=== PATIENT | female | born 1985 | race Caucasian/White ===

== ENCOUNTER 2016-08-26 04:04 | Emergency (ER) | payer OTHER ==
[2016-08-26] MEDS ORDERED: SULFAMETHOXAZOLE/TRIMETHOPRIM 800MG/160MG D.S. TABLET PO ONE (04:45)
[2016-08-26 04:46] VITALS: BP 111/88; PULSE 79; TEMP 98.4; BMI 25.7
--- NOTE | 2016-08-26 04:46 | PDOC ---
History of Present Illness - General History Source: Patient Exam Limitations: No Limitations <Gal Borges - Last Filed: 08/26/16 04:48> - General History Source: Patient Exam Limitations: No Limitations - History of Present Illness Initial Comments: 08/26/16 04:49 The patient is a 31 year old female with a significant past medical history of anxiety/depression who presents to the ED with complaints of progressively worsening bilateral breast induration. Patient reports she recently gave in December 2015 and since then noted lumps that she describes as boils surrounding her bilateral areola. Patient reports pain to her bilateral breast at the site of the induration. She states the induration intermittently burst and drain and yellow colored discharge. She states the pain progressively worsened today. Patient visited [facility] ED on 08/08/16 and was discharged with Augmentin but is not taking the medication consistently and reports no relief to symptoms. Denies fevers or chills. Denies a family history of breast CA. Denies nausea, vomiting, or diarrhea. Denies any other symptoms. Social hx: Multiple drug use. <Star Ozuna - Last Filed: 08/26/16 04:49> - General Stated Complaint: PAIN Time Seen by Provider: 08/26/16 04:30 Past History - Past Medical History Anemia: No Asthma: No Cancer: No Cardiac Disorders: No CVA: No COPD: No CHF: No Dementia: No Diabetes: No GI Disorders: No Disorders: No HTN: No Hypercholesterolemia: No Kidney Stones: No Liver Disease: No Psychiatric Problems: Yes (BIPOLAR. OCD. anxiety) Suicide Attempt (Hx): Yes (at age 14) Seizures: No Thyroid Disease: No - Surgical History Abdominal Surgery: No Appendectomy: No Cardiac Surgery: No Cholecystectomy: No Lung Surgery: No Neurologic Surgery: No Orthopedic Surgery: No - Reproductive History PID: No - Psycho/Social/Smoking Cessation Hx Anxiety: Yes Suicidal Ideation: Yes (at age 14) Smoking History: Current every day smoker Have you smoked in the past 12 months: Yes Number of Cigarettes Smoked Daily: 10 'Breaking Loose' booklet given: 01/17/16 Hx Alcohol Use: No Drug/Substance Use Hx: Yes (reports using PCP since 14 yo ,cocaine/crack since 19 yo on and off) Substance Use Type: Cocaine Hx Substance Use Treatment: Yes (completed 28 days inpatient 3 yo) <Gal Borges - Last Filed: 08/26/16 04:48> <Star Ozuna - Last Filed: 08/26/16 04:49> - Past Medical History Allergies/Adverse Reactions: Allergies Allergy/AdvReac Type Severity Reaction Status Date / Time No Known Allergies Allergy Verified 08/26/16 04:44 Home Medications: Ambulatory Orders Ferrous Sulfate [Feosol] 325 mg PO DAILY 01/17/16 Sertraline HCl [Zoloft -] 50 mg PO DAILY #30 tablet 02/08/16 Sulfamethoxazole/Trimethoprim [Bactrim Ds -] 1 tab PO BID #14 tablet 08/26/16 Review of Systems - Review of Systems Able to Perform ROS?: Yes Comments:: 08/26/16 04:49 GENERAL/CONSTITUTIONAL: No fever or chills. No weakness. HEAD, EYES, EARS, NOSE AND THROAT: No change in vision. No ear pain or discharge. No sore throat. CARDIOVASCULAR: No chest pain or shortness of breath. RESPIRATORY: No cough, wheezing, or hemoptysis. GASTROINTESTINAL: No nausea, vomiting, diarrhea or constipation. GENITOURINARY: No dysuria, frequency, or change in urination. MUSCULOSKELETAL: No joint or muscle swelling or pain. No neck or back pain. SKIN: + breast induration with pain and discharge. No rash NEUROLOGIC: No headache, vertigo, loss of consciousness, or change in strength/ sensation. ENDOCRINE: No increased thirst. No abnormal weight change. HEMATOLOGIC/LYMPHATIC: No anemia, easy bleeding, or history of blood clots. ALLERGIC/IMMUNOLOGIC: No hives or skin allergy. All Other Systems: Reviewed and Negative <Star Ozuna - Last Filed: 08/26/16 04:49> *Physical Exam - Vital Signs Last Vital Signs Temp Pulse Resp BP Pulse Ox 98.4 F 79 20 111/88 98 08/26/16 04:44 08/26/16 04:44 08/26/16 04:44 08/26/16 04:44 08/26/16 04:44 - Physical Exam Comments: 08/26/16 04:49 GENERAL: Awake, alert, and fully oriented, in no acute distress HEAD: No signs of trauma EYES: PERRLA, EOMI, sclera anicteric, conjunctiva clear ENT: Auricles normal inspection, hearing grossly normal, nares patent, oropharynx clear without exudates. Moist mucosa NECK: Normal ROM, supple, no lymphadenopathy, JVD, or masses LUNGS: Breath sounds equal, clear to auscultation bilaterally. No wheezes, and no crackles HEART: Regular rate and rhythm, normal S1 and S2, no murmurs, rubs or gallops ABDOMEN: Soft, nontender, normoactive bowel sounds. No guarding, no rebound. No masses EXTREMITIES: Normal range of motion, no edema. No clubbing or cyanosis. No cords, erythema, or tenderness NEUROLOGICAL: Normal speech SKIN: + induration no fluctuance and mild erythema just superior to right and left nipple, approximately 2x2 cm, no nipple drainage, no nodules appreciated. <Star Ozuna - Last Filed: 08/26/16 04:49> Medical Decision Making - Medical Decision Making 08/26/16 04:41 A portion of this note was documented by scribe services under my direction. I have reviewed the details of the note, within reason, and agree with the documentation with the following case summary and management plan written by me. Patient treated in the ED. Nursing notes are reviewed and incorporated into the medical decision-making. Vital signs reviewed. Peripheral IV access obtained by the nurse, laboratory studies are drawn and sent, reviewed and interpreted by myself. 31-year-old female with history of prior polysubstance abuse, depression presents with several months of induration of bilateral breast. This approximate 2 x 2 centimeter induration and mild erythema just superior to both her nipples. She reports no nipple discharge but does report occasionally that this induration does express some mild yellowish drainage. This has been a recurrent issue since she had even delivery in December 2015. She denies breast- feeding. Denies fevers. States that she was seen on August 08 by another physician and was given a prescription of Augmentin. However, patient has been intermittently taking the Augmentin and not taken it consistently. The symptoms have not improved. Came into the ED for further evaluation. Patient has no family history of breast cancer. However, I suspect this is more likely mild cellulitis and chronic induration. No clinical evidence of abscess at this time. We'll switch patient to Bactrim twice a day. I encouraged patient to be adherent to her antibiotic. Patient states that she'll follow-up with her [employer] physician. I discussed the physical exam findings, ancillary test results and final diagnoses with the patient. I answered all of the patient's questions. The patient was satisfied with the care received and felt comfortable with the discharge plan and treatment plan. The patient will call their primary care physician within 24 hours to arrange follow-up and will return to the Emergency Department with any new, persistant or worsening symptoms. <Gal Borges - Last Filed: 08/26/16 04:48> *DC/Admit/Observation/Transfer - Discharge Dispostion Admit: No <Gal Borges - Last Filed: 08/26/16 04:48> - Attestations Scribe Attestion: 08/26/16 04:49 Documentation prepared by Star Ozuna, acting as family practice medical doctor for Gal Borges MD <Star Ozuna - Last Filed: 08/26/16 04:49> Diagnosis at time of Disposition: Cellulitis of breast - Discharge Dispostion Disposition: HOME Condition at time of disposition: Stable - Prescriptions Prescriptions: Sulfamethoxazole/Trimethoprim [Bactrim Ds -] 1 tab PO BID #14 tablet - Patient Instructions Printed Discharge Instructions: DI for Cellulitis -- Adult Additional Instructions: Take bactrim every 12 hours for the next 7 days Follow up with your occupational therapist home based doctor.
[2016-08-26] MEDS ORDERED: SULFAMETHOXAZOLE/TRIMETHOPRIM 800MG/160MG D.S. TABLET ONE (04:47)
[2016-08-26] MEDS ORDERED: IBUPROFEN 600 MG TABLET (FP) PO ONE ×2 (04:47→04:48)
== END 2016-08-26 04:52 | disposition home or self-care (01) ==
LOC: JER 04:04
DX: N61.0 Mastitis without abscess (principal); F41.8 Other specified anxiety disorders; F31.9 Bipolar disorder, unspecified
CPT/HCPCS: 99281-25

== ENCOUNTER 2016-11-24 10:24 | Day surgery (SDC) | payer OTHER ==
[2016-11-23 10:20] VITALS: BMI 24.7
[2016-11-24] MEDS ORDERED: LIDOCAINE HCL 1%, 10 MG/ML (20ML VIAL) ONE (12:21)
[2016-11-24] MEDS ORDERED: MIDAZOLAM HCL 2 MG/2 ML SINGLE DOSE VIAL ONE ×2 (13:06)
[2016-11-24] MEDS ORDERED: SUCCINYLCHOLINE CHLORIDE 200 MG/10 ML VIAL ONE (13:07)
[2016-11-24] MEDS ORDERED: PROPOFOL 20 ML ONE (13:07)
[2016-11-24] MEDS ORDERED: LIDOCAINE HCL/PF 2% SDV 5ML VIAL ONE ×2 (13:07→13:43)
[2016-11-24] MEDS ORDERED: ceFAZolin SODIUM 1 GM VIAL IVPB ONE (13:22)
[2016-11-24] MEDS ORDERED: ceFAZolin SODIUM 1 GM VIAL ONE (13:25)
[2016-11-24] MEDS ORDERED: LIDOCAINE HCL 1%, 10 MG/ML (20ML VIAL) PNB ONE (13:30)
[2016-11-24] MEDS ORDERED: DEXAMETHASONE SOD PHOSPHATE 4 MG/1 ML VIAL ONE (13:43)
[2016-11-24] MEDS ORDERED: KETOROLAC TROMETHAMINE 30 MG/1 ML VIAL ONE (13:43)
[2016-11-24] MEDS ORDERED: BACITRACIN 15 GM TUBE TOPICAL OINTMENT ONE (14:03)
[2016-11-24] MEDS ORDERED: ACETAMINOPHEN 325 MG TABLET (FP) PO PRN (14:35)
[2016-11-24] MEDS ORDERED: ONDANSETRON 4 MG/2 ML VIAL IVPUSH PRN (14:35)
[2016-11-24] MEDS ORDERED: LACTATED RINGERS SOLUTION 1,000 ML IV SCH (14:45)
--- NOTE | 2016-11-24 16:02 | OP ---
DATE OF OPERATION: 11/24/2016 PREOPERATIVE DIAGNOSES: Bilateral lactiferous fistulas, palpable masses. POSTOPERATIVE DIAGNOSES: Bilateral lactiferous fistulas, palpable masses. PROCEDURE: Bilateral excision of masses. SURGEON: Carina Maki MD ANESTHESIA: General. ESTIMATED BLOOD LOSS: Minimal. COMPLICATIONS: None. This was a sterile procedure. INDICATIONS FOR PROCEDURE: Patient presented with palpable masses in the right 1 o'clock to 2 o'clock areolar border as well as the left 11 o'clock areolar border for which my recommendation was that these should be excised as these are likely lactiferous fistulas to the skin. The procedure was discussed with all the questions answered. PROCEDURE IN DETAIL: Patient brought to [facility]. Taken into the operating room. After induction of general anesthesia and IV antibiotics, both breasts were prepped and draped in usual sterile fashion. Lidocaine 1% without epinephrine was used to give local anesthesia to both the areas of surgery. First, the left breast excision was performed. A radial incision was made in the left breast 11 o'clock location to include the fistulous opening up to the nipple. This was excised en bloc and sent as a left breast excision of mass. A lacrimal duct probe was used to make sure that the opening extended to the nipple from the inside. This was sent to Pathology for permanent section. Next, the right breast fistula was excised and an ellipse of skin was taken to include the fistulous opening, extended to the nipple from the inside. In doing so, the entire mass was excised and sent to Pathology for permanent section as a right breast excision of mass. Both incisions were then closed in a routine fashion with interrupted 3-0 Vicryl and running 4-0 Biosyn. The nipple on the right side had an opening at the end of the surgery. Therefore, this was put back together with a 4-0 nylon stitch. A sterile dressing of Steri-Strips, Tegaderm, and 4 x 4 was applied. She tolerated procedure well. Was taken to recovery in good condition. CARINA MAKI M.D. KARAN/[id number]
[2016-11-24 18:15] VITALS: TEMP 97.8
[2016-11-24 18:18] VITALS: BP 112/70; PULSE 68
--- NOTE | 2016-11-30 12:00 | PATH ---
Surgical Pathology Report Patient Name: JOE SALAZAR [facility]. Rec. #: [id number] /Age/Gender: 1985 (Age: 31) / F Account: [id number] Location: [facility] SUR[facility] Taken: 11/24/2016 Received: 11/27/2016 Reported: 11/30/2016 Physicians: Carina Trimble M.D. Specimen(s) Received A: LEFT BREAST EXCISION OF MASS B: RIGHT BREAST EXCISION OF MASS Clinical History Palpable mass right and left Final Diagnosis A. BREAST, LEFT, MASS, EXCISION: BENIGN BREAST TISSUE SHOWING FIBROADENOMATOID CHANGE. SKIN SHOWING ACUTE AND CHRONIC INFLAMMATION WITH SCAR FORMATION. B. BREAST, RIGHT, MASS, EXCISION: BENIGN BREAST TISSUE SHOWING PROLIFERATIVE FIBROCYSTIC CHANGES INCLUDING CYSTIC APOCRINE METAPLASIA, USUAL DUCTAL HYPERPLASIA (UDH) AND CHRONIC PERIDUCTAL INFLAMMATION. SKIN SHOWING ACUTE AND CHRONIC INFLAMMATION AND GRANULATION TISSUE FORMATION. Electronically Signed Janice Lay M.D. Gross Description A. Received in formalin labeled "left breast excision of mass," is a 3.0 x 2.2 x 2.2 cm irregular, unoriented portion of fibroadipose tissue. There is no needle localization wire present. The anterior surface displays a 2.4 x 1.1 cm saucedo, elliptical portion of skin. The specimen is inked blue and serially sectioned. Sectioning reveals focal dense, white fibrous tissue. The specimen is entirely and sequentially submitted in 7 cassettes. B. Received in formalin labeled "right breast excision of mass," is a 3.2 x 2.3 x 2.0 cm irregular, unoriented portion of fibroadipose tissue. There is no needle localization wire present. The anterior surface displays a 2.0 x 0.6 cm saucedo, elliptical portion of skin. The specimen is inked blue and serially sectioned. Sectioning reveals focal dense, white fibrous tissue. The specimen is entirely and sequentially submitted in 8 cassettes. Total formalin fixation time: Approximately 72 hours 11/27/201611/27/2016
== END 2016-11-24 19:15 | disposition home or self-care (01) ==
LOC: JASU-SURG 10:24
PROVIDERS: ATTEND Surgery
PROC: 0HBV0ZX Excision of Bilateral Breast, Open Approach, Diagnostic (ICD-10-PCS; principal; 2016-11-24 12:00)
DX: N60.22 Fibroadenosis of left breast (principal); N60.11 Diffuse cystic mastopathy of right breast; N60.91 Unspecified benign mammary dysplasia of right breast
CPT/HCPCS: 84703; 88307-TC; 94760

== ENCOUNTER 2017-01-19 15:25 | Inpatient (IN) | payer OTHER ==
[2017-01-19 17:07] VITALS: BMI 27.6
[2017-01-19] MEDS ORDERED: ACETAMINOPHEN 325 MG TABLET (FP) PO PRN (18:44)
[2017-01-19] MEDS ORDERED: guaiFENesin/D-METHORPHAN HB 10 ML UNIT-DOSE CUPS PO PRN (18:44)
[2017-01-19] MEDS ORDERED: P-EPHED 60MG/TRIPROLIDI 2.5MG TABLET PO PRN (18:44)
[2017-01-19] MEDS ORDERED: LOPERAMIDE HCL 2 MG CAPSULE PO PRN (18:44)
[2017-01-19] MEDS ORDERED: MAGNESIUM CITRATE 300 ML BOTTLE PO PRN (18:44)
[2017-01-19] MEDS ORDERED: MAGNESIUM HYDROX 2400MG/30ML ORAL SUSPENSION 30 ML CUP PO PRN (18:44)
[2017-01-19] MEDS ORDERED: MENTHOL/PHENOL 1 EACH UD MM PRN (18:44)
[2017-01-19] MEDS ORDERED: MAG HYDROX/AL HYDROX/SIMETH 30 ML UNIT-DOSE CUP PO PRN (18:44)
[2017-01-19] MEDS ORDERED: IBUPROFEN 400 MG TABLET (FP) PO PRN (18:44)
--- NOTE | 2017-01-19 18:50 | HP ---
Admission [facility] Chief Complaint: requesting inpatient rehab for cocaine Allergies/Adverse Reactions: Allergies Allergy/AdvReac Type Severity Reaction Status Date / Time No Known Allergies Allergy Verified 01/19/17 17:18 History of Present Illness: 31 yo f with h/o cociane dependence and OCD/bipolar do court mandated for inpatient rehab. nicotine dependence, s/p breatst lumpectomy bilateral benign? Exam Limitations: No Limitations - Ebola screening Have you traveled outside of the country in the last 21 days: No (N) Have you had contact with anyone from an Ebola affected area: No Have you been sick,other than usual withdrawal symptoms: No Do you have a fever: No - Review of Systems Constitutional: No Symptoms Reported EENT: reports: No Symptoms Reported Respiratory: reports: No Symptoms reported Cardiac: reports: No Symptoms Reported GI: reports: No Symptoms Reported : reports: No Symptoms Reported Musculoskeletal: reports: No Symptoms Reported Integumentary: reports: No Symptoms Reported Neuro: reports: No Symptoms reported Endocrine: reports: No Symptoms Reported Hematology: reports: No Symptoms Reported Psychiatric: reports: Judgement Intact, Mood/Affect Appropiate, Orientated x3, Anxious, Depressed Other Systems: Reviewed and Negative Patient History - Patient Medical History Hx Anemia: No Hx Asthma: No Hx Chronic Obstructive Pulmonary Disease (COPD): No Hx Cancer: No Hx Cardiac Disorders: No Hx Congestive Heart Failure: No Hx Hypertension: No Hx Hypercholesterolemia: No Hx Pacemaker: No HX Cerebrovascular Accident: No Hx Seizures: No Hx Dementia: No Hx Diabetes: No Hx Gastrointestinal Disorders: No Hx Liver Disease: No Hx Genitourinary Disorders: No Hx Sexually Transmitted Disorders: No Hx Renal Disease (ESRD): No Hx Thyroid Disease: No Hx Human Immunodeficiency Virus (HIV): No (LAST 12/28 NEGATIVE) Hx Hepatitis C: No Hx Depression: Yes Hx Suicide Attempt: Yes (at age 14, no si at this time) Hx Bipolar Disorder: No Hx Schizophrenia: No - Patient Surgical History Past Surgical History: Yes Hx Neurologic Surgery: No Hx Cataract Extraction: No Hx Cardiac Surgery: No Hx Lung Surgery: No Hx Breast Surgery: No Hx Breast Biopsy: Yes (bilateral bx recently) Hx Abdominal Surgery: No Hx Appendectomy: No Hx Cholecystectomy: No Hx Genitourinary Surgery: No Hx Section: Yes (12/20/15) Hx Orthopedic Surgery: No Anesthesia Reaction: No - PPD History Date: 01/19/16 PPD to be Administered?: Yes - Reproductive History Patient is a Female of Child Bearing Age (11 -55 yrs old): Yes Last Menstrual Period: 11/18/16 Patient : No - Smoking Cessation Smoking history: Current every day smoker Have you smoked in the past 12 months: Yes Aproximately how many cigarettes per day: 10 Hx Chewing Tobacco Use: No Initiated information on smoking cessation: Yes 'Breaking Loose' booklet given: 01/19/17 - Substance & Tx. History Hx Alcohol Use: No Hx Substance Use: Yes Substance Use Type: Cocaine Hx Substance Use Treatment: Yes (rehab in past) - Substances Abused Cocaine Route: Inhalation Frequency: Daily Amount used: $40 Age of first use: 17 Date of Last Use: 01/12/17 Family Disease History - Family Disease History Family Disease History: Diabetes: Grandparent, Other: Father (,ALCOHOL) Admission Physical Exam BHS - Vital Signs Vital Signs: Vital Signs - 24 hr 01/19/17 17:06 Temperature 98.6 F Pulse Rate 76 Respiratory 18 Rate Blood Pressure 143/76 - Physical General Appearance: Yes: Within Normal Limits, No Apparent Distress, Nourished, Appropriately Dressed HEENTM: Yes: Within Normal Limits, EOMI, Hearing grossly Normal, Normal ENT Inspection, Normocephalic, Normal Voice, DESMOND, Pharynx Normal, Tm's normal Respiratory: Yes: Within Normal Limits, Chest Non-Tender, Lungs Clear, Normal Breath Sounds, No Respiratory Distress, No Accessory Muscle Use Neck: Yes: Within Normal Limits, No masses,lesions,Nodules, Supple, Trachea in good position Breast: Yes: Breast Exam Deferred Cardiology: Yes: Within Normal Limits, Regular Rhythm, Regular Rate, S1, S2 Abdominal: Yes: Within Normal Limits, Normal Bowel Sounds, Non Tender, Flat, Soft Genitourinary: Yes: Within Normal Limits Back: Yes: Within Normal Limits, Normal Inspection Musculoskeletal: Yes: Within Normal Limits, full range of Motion, Gait Steady, Pelvis Stable Extremities: Yes: Within Normal Limits, Normal Capillary Refill, Normal Inspection, Normal Range of Motion, Non-Tender Neurological: Yes: 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 NML intact, Fully Oriented, Alert, Motor Strength 5/5, Normal Response, Depressed Affect Integumentary: Yes: Within Normal Limits, Normal Color, Dry, Warm Lymphatic: Yes: Within Normal Limits - Diagnostic (1) History of OCD (obsessive compulsive disorder) Current Visit: No Status: Acute (2) Major depressive disorder Current Visit: No Status: Acute (3) Phencyclidine (PCP) use disorder, moderate, dependence Current Visit: No Status: Acute (4) Cannabis abuse Current Visit: No Status: Chronic (5) Cocaine dependence Current Visit: No Status: Chronic (6) Learning disability Current Visit: No Status: Chronic (7) Substance induced mood disorder Current Visit: No Status: Chronic Cleared for Admission S - Detox or Rehab Claeared for Rehab Admission: Yes [facility] Breath Alcohol Content Breath Alcohol Content: 0 Urine Pregancy Test - Result Urine Test Results: Negative- NO Line Present Urine Drug Screen - Results Drug Screen Negative: Yes Inpatient Rehab Admission - Initial Determination Are CD services needed?: Yes Free of communicable disease: Yes Not in need of hospitalization: Yes - Rehab Admission Criteria Previous failed treatment: Yes Comorbidities: Yes Patient is meeting Inpatient Rehab admission criteria:: Yes
[2017-01-19] MEDS ORDERED: TUBERCULIN PPD 5 TU/0.1ML VIAL ID ONE (20:37)
[2017-01-19] MEDS: THIAMINE HCL 100 MG TABLET (FP) PO SCH (21:30)
[2017-01-19] MEDS: hydrOXYzine PAMOATE 50 MG CAPSULE (FP) PO PRN (21:30)
[2017-01-19] MEDS: NICOTINE 14 MG/24 HOURS TOPICAL PATCH TD SCH (21:31)
[2017-01-19 23:13] LABS: URINE APPEARANCE SLCLOUDY; URINE BILIRUBIN NEGATIVE (NEGATIVE); URINE BLOOD 1+ (NEGATIVE); URINE COLOR STRAW; URINE GLUCOSE (UA) 3+ (NEGATIVE); URINE KETONE NEGATIVE (NEGATIVE); URINE LEUK ESTERASE NEGATIVE (NEGATIVE); URINE NITRITE NEGATIVE (NEGATIVE); URINE PROTEIN NEGATIVE (NEGATIVE); URINE UROBILINOGEN NEGATIVE mg/dL (0.2-1.0)
[2017-01-20 00:02] LABS: URINE BACTERIA MODERATE /hpf (NONE SEEN); URINE MUCUS RARE; URINE RBC 1 /hpf (0-3); URINE WBC <1 /hpf (3-5)
[2017-01-20 09:43] LABS: MCH 31.7 pg (25.7-33.7); MCHC 34.3 g/dl (32.0-36.0); MEAN CELL VOLUME 92.3 fl (80-96); PLATELET COUNT 288 K/MM3 (134-434)
[2017-01-20 10:18] LABS: ALBUMIN 3.5 g/dl (3.4-5.0); ALK PHOS 105 U/L (45-117); ANION GAP 8 (8-16); BILIRUBIN,TOTAL 0.6 mg/dL (0.2-1.0); CALCIUM 8.7 mg/dL (8.5-10.1); CO2 26 mmol/L (21-32); CREATININE 0.7 mg/dL (0.55-1.02); GLUCOSE,RANDOM 90 mg/dL (74-106); SGOT/AST 11 U/L (15-37); SGPT/ALT 33 U/L (12-78); TOT PROT 7.1 g/dl (6.4-8.2)
[2017-01-20] MEDS: NICOTINE 14 MG/24 HOURS TOPICAL PATCH TD SCH (10:24)
[2017-01-20] MEDS: PRENATAL VITAMINS W/ FOLIC ACID TABLET (FP) PO SCH (10:24)
[2017-01-20 12:30] LABS: URINE LEUK ESTERASE Negative (NEGATIVE)
[2017-01-20] MEDS: THIAMINE HCL 100 MG TABLET (FP) PO SCH (22:14)
--- NOTE | 2017-01-21 08:52 | EKG ---
Test Reason : Blood Pressure : / mmHG Vent. Rate : 056 BPM Atrial Rate : 056 BPM P-R Int : 134 ms QRS Dur : 088 ms QT Int : 448 ms P-R-T Axes : 025 062 057 degrees QTc Int : 432 ms SINUS BRADYCARDIA OTHERWISE NORMAL ECG WHEN COMPARED WITH ECG OF 20-DEC-2015 15:48, T WAVE INVERSION NO LONGER EVIDENT IN INFERIOR LEADS NONSPECIFIC T WAVE ABNORMALITY NO LONGER EVIDENT IN ANTERIOR LEADS Confirmed by ANA KIMBLE, PEPITO ([id number]) on 01/21/2017 8:52:14 AM Referred By: Confirmed By:PEPITO PEREZ MD
[2017-01-21] MEDS: PRENATAL VITAMINS W/ FOLIC ACID TABLET (FP) PO SCH (10:02)
[2017-01-21] MEDS: NICOTINE 14 MG/24 HOURS TOPICAL PATCH TD SCH (10:02)
[2017-01-21] MEDS: THIAMINE HCL 100 MG TABLET (FP) PO SCH (21:24)
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
[2017-01-22] MEDS: PRENATAL VITAMINS W/ FOLIC ACID TABLET (FP) PO SCH (10:32)
[2017-01-22] MEDS: SERTRALINE HCL 50 MG TABLET (FP) PO SCH (10:32)
[2017-01-22] MEDS: NICOTINE 14 MG/24 HOURS TOPICAL PATCH TD SCH (10:32)
[2017-01-22] MEDS: hydrOXYzine PAMOATE 50 MG CAPSULE (FP) PO PRN (21:18)
[2017-01-22] MEDS: QUEtiapine FUMARATE 100 MG TABLET (FP) PO SCH (21:18)
[2017-01-22] MEDS: THIAMINE HCL 100 MG TABLET (FP) PO SCH (21:18)
[2017-01-22] MEDS ORDERED: QUEtiapine FUMARATE 100 MG TABLET (FP) PO SCH (22:00)
[2017-01-23] MEDS: SERTRALINE HCL 50 MG TABLET (FP) PO SCH (09:58)
[2017-01-23] MEDS: NICOTINE 14 MG/24 HOURS TOPICAL PATCH TD SCH (09:58)
[2017-01-23] MEDS: PRENATAL VITAMINS W/ FOLIC ACID TABLET (FP) PO SCH (09:58)
[2017-01-23] MEDS: QUEtiapine FUMARATE 100 MG TABLET (FP) PO SCH (21:39)
[2017-01-23] MEDS: THIAMINE HCL 100 MG TABLET (FP) PO SCH (21:39)
[2017-01-24] MEDS: NICOTINE 14 MG/24 HOURS TOPICAL PATCH TD SCH (10:05)
[2017-01-24] MEDS: PRENATAL VITAMINS W/ FOLIC ACID TABLET (FP) PO SCH (10:05)
[2017-01-24] MEDS: SERTRALINE HCL 50 MG TABLET (FP) PO SCH (10:05)
[2017-01-24] MEDS: THIAMINE HCL 100 MG TABLET (FP) PO SCH (21:51)
[2017-01-24] MEDS: QUEtiapine FUMARATE 100 MG TABLET (FP) PO SCH (21:51)
[2017-01-25] MEDS: SERTRALINE HCL 50 MG TABLET (FP) PO SCH (10:42)
[2017-01-25] MEDS: NICOTINE 14 MG/24 HOURS TOPICAL PATCH TD SCH (10:42)
[2017-01-25] MEDS: PRENATAL VITAMINS W/ FOLIC ACID TABLET (FP) PO SCH (10:42)
[2017-01-25] MEDS: QUEtiapine FUMARATE 100 MG TABLET (FP) PO SCH (21:27)
[2017-01-25] MEDS: THIAMINE HCL 100 MG TABLET (FP) PO SCH (21:27)
[2017-01-26] MEDS: PRENATAL VITAMINS W/ FOLIC ACID TABLET (FP) PO SCH (10:03)
[2017-01-26] MEDS: SERTRALINE HCL 50 MG TABLET (FP) PO SCH (10:03)
[2017-01-26] MEDS: NICOTINE 14 MG/24 HOURS TOPICAL PATCH TD SCH (10:03)
[2017-01-26] MEDS: QUEtiapine FUMARATE 100 MG TABLET (FP) PO SCH (21:29)
[2017-01-26] MEDS: THIAMINE HCL 100 MG TABLET (FP) PO SCH (21:29)
[2017-01-27] MEDS: SERTRALINE HCL 50 MG TABLET (FP) PO SCH (09:53)
[2017-01-27] MEDS: NICOTINE 14 MG/24 HOURS TOPICAL PATCH TD SCH (09:53)
[2017-01-27] MEDS: PRENATAL VITAMINS W/ FOLIC ACID TABLET (FP) PO SCH (09:53)
[2017-01-27] MEDS: QUEtiapine FUMARATE 100 MG TABLET (FP) PO SCH (21:49)
[2017-01-27] MEDS: THIAMINE HCL 100 MG TABLET (FP) PO SCH (21:49)
[2017-01-28] MEDS: SERTRALINE HCL 50 MG TABLET (FP) PO SCH (10:00)
[2017-01-28] MEDS: NICOTINE 14 MG/24 HOURS TOPICAL PATCH TD SCH (10:00)
[2017-01-28] MEDS: PRENATAL VITAMINS W/ FOLIC ACID TABLET (FP) PO SCH (10:00)
[2017-01-28] MEDS: THIAMINE HCL 100 MG TABLET (FP) PO SCH (21:30)
[2017-01-28] MEDS: QUEtiapine FUMARATE 100 MG TABLET (FP) PO SCH (21:30)
[2017-01-29] MEDS: SERTRALINE HCL 50 MG TABLET (FP) PO SCH (10:12)
[2017-01-29] MEDS: PRENATAL VITAMINS W/ FOLIC ACID TABLET (FP) PO SCH (10:12)
[2017-01-29] MEDS: NICOTINE 14 MG/24 HOURS TOPICAL PATCH TD SCH (10:12)
[2017-01-29] MEDS: THIAMINE HCL 100 MG TABLET (FP) PO SCH (21:28)
[2017-01-29] MEDS: QUEtiapine FUMARATE 100 MG TABLET (FP) PO SCH (21:28)
[2017-01-29] MEDS: MICONAZOLE NITRATE 100 MG SUPP SUPP.VAG PV SCH (21:29)
[2017-01-29] MEDS: hydrOXYzine PAMOATE 50 MG CAPSULE (FP) PO PRN (21:29)
[2017-01-30] MEDS: NICOTINE 14 MG/24 HOURS TOPICAL PATCH TD SCH (10:10)
[2017-01-30] MEDS: SERTRALINE HCL 50 MG TABLET (FP) PO SCH (10:10)
[2017-01-30] MEDS: PRENATAL VITAMINS W/ FOLIC ACID TABLET (FP) PO SCH (10:10)
[2017-01-30] MEDS: THIAMINE HCL 100 MG TABLET (FP) PO SCH (21:26)
[2017-01-30] MEDS: QUEtiapine FUMARATE 100 MG TABLET (FP) PO SCH (21:26)
[2017-01-30] MEDS: MICONAZOLE NITRATE 100 MG SUPP SUPP.VAG PV SCH (21:26)
[2017-01-31] MEDS: SERTRALINE HCL 50 MG TABLET (FP) PO SCH (10:24)
[2017-01-31] MEDS: PRENATAL VITAMINS W/ FOLIC ACID TABLET (FP) PO SCH (10:24)
[2017-01-31] MEDS: NICOTINE 14 MG/24 HOURS TOPICAL PATCH TD SCH (10:24)
[2017-01-31] MEDS: MICONAZOLE NITRATE 100 MG SUPP SUPP.VAG PV SCH (21:40)
[2017-01-31] MEDS: QUEtiapine FUMARATE 100 MG TABLET (FP) PO SCH (21:40)
[2017-01-31] MEDS: THIAMINE HCL 100 MG TABLET (FP) PO SCH (21:40)
[2017-02-01] MEDS: SERTRALINE HCL 50 MG TABLET (FP) PO SCH (09:26)
[2017-02-01] MEDS: NICOTINE 14 MG/24 HOURS TOPICAL PATCH TD SCH (09:26)
[2017-02-01] MEDS: PRENATAL VITAMINS W/ FOLIC ACID TABLET (FP) PO SCH (09:26)
[2017-02-01] MEDS: QUEtiapine FUMARATE 100 MG TABLET (FP) PO SCH (21:31)
[2017-02-01] MEDS: THIAMINE HCL 100 MG TABLET (FP) PO SCH (21:31)
[2017-02-01] MEDS: MICONAZOLE NITRATE 100 MG SUPP SUPP.VAG PV SCH (21:32)
[2017-02-02] MEDS: SERTRALINE HCL 50 MG TABLET (FP) PO SCH (10:13)
[2017-02-02] MEDS: PRENATAL VITAMINS W/ FOLIC ACID TABLET (FP) PO SCH (10:13)
[2017-02-02] MEDS: NICOTINE POLACRILEX 2 MG GUM BC PRN (10:14)
[2017-02-02] MEDS: NICOTINE 14 MG/24 HOURS TOPICAL PATCH TD SCH (10:14)
[2017-02-02] MEDS: hydrOXYzine PAMOATE 50 MG CAPSULE (FP) PO PRN (21:31)
[2017-02-02] MEDS: MICONAZOLE NITRATE 100 MG SUPP SUPP.VAG PV SCH (21:31)
[2017-02-02] MEDS: THIAMINE HCL 100 MG TABLET (FP) PO SCH (21:31)
[2017-02-02] MEDS: QUEtiapine FUMARATE 100 MG TABLET (FP) PO SCH (21:31)
[2017-02-03] MEDS: NICOTINE 14 MG/24 HOURS TOPICAL PATCH TD SCH (09:54)
[2017-02-03] MEDS: SERTRALINE HCL 50 MG TABLET (FP) PO SCH (09:54)
[2017-02-03] MEDS: PRENATAL VITAMINS W/ FOLIC ACID TABLET (FP) PO SCH (09:54)
[2017-02-03] MEDS: MICONAZOLE NITRATE 100 MG SUPP SUPP.VAG PV SCH (21:32)
[2017-02-03] MEDS: THIAMINE HCL 100 MG TABLET (FP) PO SCH (21:33)
[2017-02-03] MEDS: QUEtiapine FUMARATE 100 MG TABLET (FP) PO SCH (21:33)
[2017-02-03] MEDS: hydrOXYzine PAMOATE 50 MG CAPSULE (FP) PO PRN (21:33)
[2017-02-04] MEDS: SERTRALINE HCL 50 MG TABLET (FP) PO SCH (10:01)
[2017-02-04] MEDS: PRENATAL VITAMINS W/ FOLIC ACID TABLET (FP) PO SCH (10:01)
[2017-02-04] MEDS: NICOTINE 14 MG/24 HOURS TOPICAL PATCH TD SCH (10:01)
[2017-02-04] MEDS: NICOTINE POLACRILEX 2 MG GUM BC PRN ×2 (10:02→21:28)
[2017-02-04] MEDS: hydrOXYzine PAMOATE 50 MG CAPSULE (FP) PO PRN (21:27)
[2017-02-04] MEDS: MICONAZOLE NITRATE 100 MG SUPP SUPP.VAG PV SCH (21:27)
[2017-02-04] MEDS: THIAMINE HCL 100 MG TABLET (FP) PO SCH (21:28)
[2017-02-04] MEDS: QUEtiapine FUMARATE 100 MG TABLET (FP) PO SCH (21:28)
[2017-02-05] MEDS: NICOTINE 14 MG/24 HOURS TOPICAL PATCH TD SCH (10:00)
[2017-02-05] MEDS: PRENATAL VITAMINS W/ FOLIC ACID TABLET (FP) PO SCH (10:00)
[2017-02-05] MEDS: SERTRALINE HCL 50 MG TABLET (FP) PO SCH (10:00)
[2017-02-05] MEDS: NICOTINE POLACRILEX 2 MG GUM BC PRN (10:01)
[2017-02-05] MEDS: THIAMINE HCL 100 MG TABLET (FP) PO SCH (21:47)
[2017-02-05] MEDS: QUEtiapine FUMARATE 100 MG TABLET (FP) PO SCH (21:47)
[2017-02-05] MEDS ORDERED: PT OWN MED DRAWER 7, Y5N ONE (21:49)
[2017-02-05] MEDS: MICONAZOLE NITRATE 100 MG SUPP SUPP.VAG PV SCH (21:49)
[2017-02-06] MEDS: SERTRALINE HCL 50 MG TABLET (FP) PO SCH (09:53)
[2017-02-06] MEDS: PRENATAL VITAMINS W/ FOLIC ACID TABLET (FP) PO SCH (09:53)
[2017-02-06] MEDS: NICOTINE 14 MG/24 HOURS TOPICAL PATCH TD SCH (09:53)
[2017-02-06] MEDS: NICOTINE POLACRILEX 2 MG GUM BC PRN (09:55)
--- NOTE | 2017-02-06 10:10 | PN ---
Progress Note (short form) - Note Progress Note: c/o discharge from breast incisions in the shower, appears to be pus and not milk from base of incision near the nipple. few weeks ago had biopsies in b/l breasts, does not recall name of surgeon denies fevers, breast enlargement, cough, erythema, blood from incision sites or from nipple or breast skin changes focused PE: HEART: s1, s2 without murmurs LUNGS: CTAB BREAST: no palpable masses, insicions are well healing without tenderness/ surrounding erythema/discharge/warmth. 2 horizontal 3cm incisions (btwn 11-12 position across areola to nipple) AXILLA: b/l no palpable lymph nodes Plan: apply bacitracin to incision sites since patient is medically stable and breast exam is benign will defer abx and further imaging unless symptoms worsen recommend patient return for outpatient post-surgical follow-up once dc from rehab Resident Progress note Dr. Marrufo, PGY-[address] Vogel
[2017-02-06] MEDS: BACITRACIN 0.9 GM PACKET TP SCH (12:30)
[2017-02-06] MEDS: THIAMINE HCL 100 MG TABLET (FP) PO SCH (21:34)
[2017-02-06] MEDS: hydrOXYzine PAMOATE 50 MG CAPSULE (FP) PO PRN (21:34)
[2017-02-06] MEDS: QUEtiapine FUMARATE 100 MG TABLET (FP) PO SCH (21:34)
[2017-02-06] MEDS: MICONAZOLE NITRATE 100 MG SUPP SUPP.VAG PV SCH (21:35)
[2017-02-07] MEDS: BACITRACIN 0.9 GM PACKET TP SCH (10:21)
[2017-02-07] MEDS: SERTRALINE HCL 50 MG TABLET (FP) PO SCH (10:21)
[2017-02-07] MEDS: NICOTINE 14 MG/24 HOURS TOPICAL PATCH TD SCH (10:21)
[2017-02-07] MEDS: PRENATAL VITAMINS W/ FOLIC ACID TABLET (FP) PO SCH (10:21)
[2017-02-07] MEDS: NICOTINE POLACRILEX 2 MG GUM BC PRN (10:23)
[2017-02-07] MEDS: QUEtiapine FUMARATE 100 MG TABLET (FP) PO SCH (21:32)
[2017-02-07] MEDS: MICONAZOLE NITRATE 100 MG SUPP SUPP.VAG PV SCH (21:33)
[2017-02-07] MEDS: hydrOXYzine PAMOATE 50 MG CAPSULE (FP) PO PRN (21:33)
[2017-02-07] MEDS: THIAMINE HCL 100 MG TABLET (FP) PO SCH (21:33)
[2017-02-08 06:58] VITALS: PULSE 64
[2017-02-08] MEDS: BACITRACIN 0.9 GM PACKET TP SCH (10:24)
[2017-02-08] MEDS: SERTRALINE HCL 50 MG TABLET (FP) PO SCH (10:24)
[2017-02-08] MEDS: PRENATAL VITAMINS W/ FOLIC ACID TABLET (FP) PO SCH (10:24)
[2017-02-08] MEDS: NICOTINE 14 MG/24 HOURS TOPICAL PATCH TD SCH (10:24)
--- NOTE | 2017-02-08 12:04 | PN ---
Psychiatric Progress Note Vital Signs: Vital Signs Period Temp Pulse Resp BP Sys/Santillan Pulse Ox Last 24 Hr 98.5 F 64 18-18 109/69 Date of Session: 02/08/17 Chief Complaint:: Discharge Note HPI: Patient addressing Cocaine and Phencyclidine Dependence comorbid with Nicotine Dependence, Major depressive Disorder, OCD and Learning Disability ROS: Cellulitis of breast, TMJ Current Medications: Active Medications Generic Name Dose Route Start Last Admin Trade Name Freq PRN Reason Stop Dose Admin Acetaminophen 650 mg 01/19/17 18:44 02/07/17 21:32 Tylenol - PO 650 mg Q4H PRN Administration PAIN Al Hydroxide/Mg Hydroxide 30 ml 01/19/17 18:44 Mylanta Oral Suspension - PO Q6H PRN DYSPEPSIA Bacitracin 0.9 gm 02/06/17 13:43 02/08/17 10:24 Bacitracin - TP 0.9 gm DAILY CHERELLE Administration Eucalyptus/Menthol/Phenol/Sorbitol 1 each 01/19/17 18:44 Cepastat Lozenge - MM Q4H PRN SORE THROAT Guaifenesin 10 ml 01/19/17 18:44 Robitussin Dm - PO Q6H PRN COUGH Hydroxyzine Pamoate 50 mg 01/19/17 18:44 02/07/17 21:33 Vistaril - PO 50 mg Q4H PRN Administration AGITATION Ibuprofen 400 mg 01/19/17 18:44 Motrin - PO Q6H PRN SEVERE PAIN Loperamide HCl 4 mg 01/19/17 18:44 Imodium - PO Q6H PRN DIARRHEA Magnesium Citrate 300 ml 01/19/17 18:44 Citroma - PO Q48H PRN CONSTIPATION Magnesium Hydroxide 30 ml 01/19/17 18:44 Milk Of Magnesia - PO DAILY PRN CONSTIPATION Miconazole Nitrate 100 mg 01/29/17 22:00 02/07/17 21:33 Monistat-7 Vaginal Suppository - PV Not Given HS CHERELLE Nicotine 14 mg 01/19/17 19:00 02/08/17 10:24 Nicoderm Patch - TD 14 mg DAILY CHERELLE Administration Nicotine Polacrilex 2 mg 01/19/17 18:44 02/07/17 10:23 Nicorette Gum - BC 2 mg Q2H PRN Administration NICOTINE REPLACEMENT RX Multivit/Folic Acid/Iron 1 tab 01/20/17 10:00 02/08/17 10:24 Vitamins (Sjr) - PO 1 tab DAILY CHERELLE Administration Pseudoephedrine/Triprolidine 1 combo 01/19/17 18:44 Actifed - PO TID PRN NASAL CONGESTION Quetiapine Fumarate 100 mg 01/22/17 22:00 02/07/17 21:32 Seroquel - PO 100 mg HS CHERELLE Administration Sertraline HCl 100 mg 01/22/17 10:30 02/08/17 10:24 Zoloft - PO 100 mg DAILY CHERELLE Administration Thiamine HCl 100 mg 01/19/17 22:00 02/07/17 21:33 Vitamin B1 - PO 100 mg HS CHERELLE Administration Current Side Effect: No Lab tests ordered: Yes Lab tests reviewed: Yes Provider note:: Patient will complete this program on 02/09/17. He has met his treatment goals and will continue to address his issues in outpatient treatment at [facility] at [address] [place] [address]. Told sports writer that from her participation in this program, she has learned that she has to see things in a different way, she cannot keep doing the same things the same way and expect different result. She responded well to Seroquel 100 mg po HS and Zoloft 100 mg po daily. Scripts for 30 days supply of medications will be electronically transmitted to [facility] at [address] [place] [address]. She is stable for discharge on 02/09/17 Total face to face time:: 35 Mental Status Exam - Mental Status Exam Alert and Oriented to: Time, Place, Person Cognitive Function: Fair Patient Appearance: Well Groomed Mood: Hopeful, Euthymic Affect: Appropriate Patient Behavior: Cooperative Speech Pattern: Clear Voice Loudness: Normal Thought Process: Intact, Goal Oriented Thought Disorder: Not Present Hallucinations: Denies Suicidal Ideation: Denies Homicidal Ideation: Denies Insight/Judgement: Fair Sleep: Well Appetite: Good Muscle strength/Tone: Normal Gait/Station: Normal Psychiatric Treatment Plan - Problem List (1) Cocaine dependence Current Visit: No (2) Phencyclidine dependence Current Visit: Yes (3) Nicotine dependence Current Visit: No (4) Major depressive disorder Current Visit: No (5) OCD (obsessive compulsive disorder) Current Visit: No (6) Learning disability Current Visit: No (7) Cellulitis of breast Current Visit: Yes (8) TMJ (temporomandibular joint syndrome) Current Visit: No (9) Bipolar II disorder Current Visit: Yes Initial treatment plan: Patient will be discharged tomorrow and referred to [facility] for outpatient treatment
--- NOTE | 2017-02-08 20:26 | PN ---
[facility] Progress Note Note: RECEIVED NURSE CALL THAT VAGINAL CREAM NEEDED TO BE DISCONTINUED
[2017-02-08] MEDS: QUEtiapine FUMARATE 100 MG TABLET (FP) PO SCH (21:28)
[2017-02-08] MEDS: THIAMINE HCL 100 MG TABLET (FP) PO SCH (21:28)
[2017-02-08] MEDS: hydrOXYzine PAMOATE 50 MG CAPSULE (FP) PO PRN (21:28)
[2017-02-09 06:43] VITALS: BP 116/72; TEMP 97.9
[2017-02-09] MEDS: BACITRACIN 0.9 GM PACKET TP SCH (09:05)
[2017-02-09] MEDS: NICOTINE 14 MG/24 HOURS TOPICAL PATCH TD SCH (09:05)
[2017-02-09] MEDS: SERTRALINE HCL 50 MG TABLET (FP) PO SCH (09:05)
[2017-02-09] MEDS: PRENATAL VITAMINS W/ FOLIC ACID TABLET (FP) PO SCH (09:05)
== END 2017-02-09 09:25 | disposition home or self-care (01) | DRG 772 ==
LOC: YASAS 15:25 → Y3W 17:46
PROVIDERS: ADMIT Psychiatry & Neurology Psychiatry; ATTEND Psychiatry & Neurology Psychiatry
PROC: HZ42ZZZ Group Counseling for Substance Abuse Treatment, Cognitive-Behavioral (ICD-10-PCS; principal; 2017-01-19)
DX: F14.20 Cocaine dependence, uncomplicated (principal); F16.20 Hallucinogen dependence, uncomplicated; F12.10 Cannabis abuse, uncomplicated; F17.210 Nicotine dependence, cigarettes, uncomplicated; F33.9 Major depressive disorder, recurrent, unspecified; F42.9 Obsessive-compulsive disorder, unspecified; F31.81 Bipolar II disorder; F19.24 Other psychoactive substance dependence with psychoactive substance-induced mood disorder; F81.9 Developmental disorder of scholastic skills, unspecified; N61.0 Mastitis without abscess; M26.609 Unspecified temporomandibular joint disorder, unspecified side; Z91.5 Personal history of self-harm; Z59.0 Homelessness
CPT/HCPCS: 36415; 80053; 81003; 81015; 85027; 86593; 93005; 93010

== ENCOUNTER 2017-05-18 04:59 | Emergency (ER) | payer OTHER ==
[2017-05-18 05:09] VITALS: BMI 25.7
[2017-05-18] MEDS ORDERED: FAMOTIDINE 20 MG/50 ML IVPB 20 MG/50 ML MG IVPB ONE ×2 (05:19→06:15)
[2017-05-18] MEDS ORDERED: ONDANSETRON 4 MG/2 ML VIAL IVPUSH ONE (05:19)
[2017-05-18] MEDS ORDERED: SODIUM CHLORIDE 1,000 ML IV STA (05:19)
[2017-05-18] MEDS ORDERED: ONDANSETRON 4 MG/2 ML VIAL ONE (05:26)
--- NOTE | 2017-05-18 05:27 | PDOC ---
Attending Attestation - HPI HPI: 05/18/17 06:32 Patient is a 32 year old female, , with a significant past medical history of Bipolar disorder, depression , anxiety, polysubstance abuse who presents to the ED with complaints of nausea and vomiting that began 8 hours ago. Patient reports experiencing nausea and vomiting that began 8 hours prior to ED arrival and has shown no signs of subsiding. She reports having multiple sick contacts due to living in a senior living that constantly has sick individuals. Patient reports experiencing associated symptoms of diarrhea. Patient reports believing the cause to be french food that she ate earlier/ Denies chest pain, Sob. Denies nausea, vomiting. Denies out of state travel. Denies dysuria, hematuria. Denies any other symptoms. Allergies: None Social history: No smoking. No alcohol. PCP since 14 yo ,cocaine/crack since 19 yo on and off Surgical history: None PMD: Dr. Guerrero <Pedro Dobbs - Last Filed: 05/18/17 06:31> - Resident Resident Name: Brandon Harris - ED Attending Attestation I have performed the following: I have examined & evaluated the patient, The case was reviewed & discussed with the resident, I agree w/resident's findings & plan, Exceptions are as noted - Physicial Exam PE: 05/18/17 06:28 *Physical Exam General Appearance: Yes: Appropriately Dressed. No: Apparent Distress, Intoxicated HEENT: positive: EOMI, DESMOND, Normal ENT Inspection, Normal Voice, TMs Normal, Pharynx Normal. negative: Pale Conjunctivae, Photophobia, Scleral Icterus (R), Scleral Icterus (L) Neck: positive: Trachea midline, Normal Thyroid, Supple. negative: Tender, Rigid, Carotid bruit, Stridor, Lymphadenopathy (R), Lymphadenopathy (L), Thyromegaly Respiratory/Chest: positive: Lungs Clear, Normal Breath Sounds. negative: Chest Tender, Respiratory Distress, Accessory Muscle Use, Labored Respiration, RES, Crackles, Rales, Rhonchi, Stridor, Wheezing, Dullness Cardiovascular: positive: Regular Rhythm, Regular Rate, S1, S2. negative: Edema , JVD, Murmur, Bradycardia, Tachycardia Vascular Pulses: Dorsalis-Pedis (R): 2+, Doralis-Pedis (L): 2+ Gastrointestinal/Abdominal: positive: Normal Bowel Sounds, Flat, Soft. negative : Tender, Organomegaly, Pulsatile Mass, Increased Bowel Sounds, Decreased BS, Distended, Guarding, Rebound, Hernia, Hepatomegaly, Spleenomegaly Lymphatic: negative: Adenopathy, Tenderness Musculoskeletal: positive: Normal Inspection. negative: CVA Tenderness, Decreased Range of Motion Extremity: positive: Normal Capillary Refill, Normal Inspection, Normal Range of Motion, Pelvis Stable. negative: Tender, Pedal Edema, Swelling, Erythema Integumentary: positive: Normal Color, Dry, Warm. 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 negative: EOM Palsy, Facial Droop, Sensory Deficit - Medical Decision Making 05/22/17 19:23 Pt treated and released <Max Jasmine - Last Filed: 05/22/17 19:23>
--- NOTE | 2017-05-18 05:28 | PDOC ---
History of Present Illness - General Chief Complaint: Nausea/Vomiting Stated Complaint: NAUSEA/VOMITING Time Seen by Provider: 05/18/17 05:08 History Source: Patient Exam Limitations: No Limitations - History of Present Illness Initial Comments: 05/18/17 05:21 Patient is a 32F here today complaining of nausea, vomiting, and diarrhea for the past 8 hours. She denies blood in stool or vomit. She states that because she lives in a longterm, she believes that she has many sick contacts. She endorses a non-focal abdominal pain. She states that her LMP was 2 months ago and that she is , but doesn't know how far along. She states that she's heard the baby's heart beat but has not confirmed the with an ultrasound. She reports having an appointment on 05/22 with [facility]. Denies vaginal pain and vaginal bleeding. Past History - Past Medical History Allergies/Adverse Reactions: Allergies Allergy/AdvReac Type Severity Reaction Status Date / Time No Known Allergies Allergy Verified 05/18/17 05:07 Home Medications: Ambulatory Orders Quetiapine Fumarate [Seroquel] 100 tab PO HS #30 tablet 02/08/17 Sertraline HCl [Zoloft -] 100 mg PO DAILY #30 tablet 02/08/17 Anemia: No Asthma: No Cancer: No Cardiac Disorders: No CVA: No COPD: No CHF: No Dementia: No Diabetes: No GI Disorders: No Disorders: No HTN: No Hypercholesterolemia: No Kidney Stones: No Liver Disease: No Psychiatric Problems: Yes (BIPOLAR. OCD. anxiety) Seizures: No Thyroid Disease: No - Surgical History Abdominal Surgery: No Appendectomy: No Cardiac Surgery: No Cholecystectomy: No Lung Surgery: No Neurologic Surgery: No Orthopedic Surgery: No - Reproductive History PID: No - Immunization History Immunization Up to Date: Yes - Suicide/Smoking/Psychosocial Hx Smoking History: Never smoked Have you smoked in the past 12 months: No Number of Cigarettes Smoked Daily: 10 Information on smoking cessation initiated: No 'Breaking Loose' booklet given: 01/19/17 Hx Alcohol Use: No Drug/Substance Use Hx: No Substance Use Type: Cocaine (Started using cocaine at age 17, consumes $40 worth daily. Last used on 01/12/17) Hx Substance Use Treatment: Yes (2 previous in rehab admission @ [facility]) Review of Systems - Review of Systems Comments:: 05/18/17 05:28 GENERAL/CONSTITUTIONAL: No fever or chills. No weakness. HEAD, EYES, EARS, NOSE AND THROAT: No change in vision. No sore throat. CARDIOVASCULAR: No chest pain or shortness of breath RESPIRATORY: No cough, wheezing, or hemoptysis. GASTROINTESTINAL: Positive for nausea, vomiting, diarrhea. GENITOURINARY: No dysuria, frequency, or change in urination. MUSCULOSKELETAL: No joint or muscle swelling or pain. No neck or back pain. SKIN: No rash NEUROLOGIC: No headache, vertigo, loss of consciousness, or change in strength/ sensation. ALLERGIC/IMMUNOLOGIC: No hives or skin allergy. *Physical Exam - Vital Signs Last Vital Signs Temp Pulse Resp BP Pulse Ox 98.4 F 79 20 148/102 98 05/18/17 05:07 05/18/17 05:07 05/18/17 05:07 05/18/17 05:07 05/18/17 05:07 - Physical Exam Comments: 05/18/17 05:29 GENERAL: Awake, alert, and fully oriented, in no acute distress HEAD: No signs of trauma, normocephalic, atraumatic EYES: PERRLA, EOMI, sclera anicteric, conjunctiva clear ENT: Auricles normal inspection, hearing grossly normal, nares patent, oropharynx clear without exudates. Dry mucosa NECK: Normal ROM, supple, no lymphadenopathy, JVD, or masses LUNGS: No distress, speaks full sentences, clear to auscultation bilaterally HEART: Regular rate and rhythm, normal S1 and S2, no murmurs, rubs or gallops, peripheral pulses normal and equal bilaterally. ABDOMEN: Soft, nontender, normoactive bowel sounds. No guarding, no rebound. No masses EXTREMITIES: Normal inspection, Normal range of motion, no edema. No clubbing or cyanosis. NEUROLOGICAL: Cranial nerves II through XII grossly intact. Normal speech, no focal sensorimotor deficits SKIN: Warm, Dry, normal turgor, no rashes or lesions noted. ED Treatment Course - LABORATORY CBC & Chemistry Diagram: 05/18/17 05:21 05/18/17 05:21 - RADIOLOGY Radiology Studies Ordered: Category Date Time Status TRANSVAGINAL US PREG [US] Stat Ultrasound 05/18/17 05:20 Ordered Medical Decision Making - Medical Decision Making 05/18/17 05:29 Patient is a 32F with history of depression, anxiety, polysubstance abuse here today complaining of nausea, vomiting, diarrhea. Vital signs stable and normal. DDx includes, but is not limited to: hyperemesis gravidarum, gastroenteritis, UTI. Will workup with cbc, cmp, lipase, beta quant, type and scnreen, ua, tvus. 05/18/17 06:46 Laboratory Tests 05/18/17 05/18/17 05:21 05:21 WBC 10.6 H D Hgb 12.9 D Hct 36.1 D Plt Count 290 BUN 6 L Creatinine 0.5 L Beta HCG, Quant 58752.3 CBC normal. CMP reassuring. Beta positive. Pending US and UA. 05/18/17 07:[address] Alejandre. *DC/Admit/Observation/Transfer Diagnosis at time of Disposition: Nausea - Discharge Dispostion Condition at time of disposition: Stable - Referrals Referrals: Pratik Guerrero [Primary Care Provider] - - Patient Instructions - Post Discharge Activity
[2017-05-18 05:33] LABS: BASO % 0.9 % (0-2.0); EOS % 1.8 % (0-4.5); HEMATOCRIT 36.1 % (32.4-45.2); HEMOGLOBIN 12.9 GM/dL (10.7-15.3); LYMPH % 28.2 % (8-40); MCH 32.5 pg (25.7-33.7); MCHC 35.7 g/dl (32.0-36.0); MEAN PLT VOLUME 8.2 fl (7.5-11.1); MONO % 7.9 % (3.8-10.2); NEUT % 61.2 % (42.8-82.8); PLATELET COUNT 290 K/MM3 (134-434); RBC 3.97 M/mm3 (3.60-5.2); RDW 12.2 % (11.6-15.6); WHITE BLOOD COUNT 10.6 K/mm3 (4.0-10.0)
[2017-05-18 06:02] LABS: ALBUMIN 3.1 g/dl (3.4-5.0); ANION GAP 10 (8-16); BILIRUBIN,TOTAL 0.4 mg/dL (0.2-1.0); BLOOD UREA NITROGEN 6 mg/dL (7-18); CALCIUM 8.2 mg/dL (8.5-10.1); CHLORIDE 103 mmol/L (98-107); CO2 26 mmol/L (21-32); CREATININE 0.5 mg/dL (0.55-1.02); GLUCOSE,RANDOM 82 mg/dL (74-106); LIPASE 71 U/L (73-393); POTASSIUM 3.9 mmol/L (3.5-5.1); SGOT/AST 19 U/L (15-37); SGPT/ALT 47 U/L (12-78); SODIUM 139 mmol/L (136-145); TOT PROT 6.7 g/dl (6.4-8.2)
[2017-05-18 06:10] LABS: ALK PHOS 95 U/L (45-117)
[2017-05-18 08:45] VITALS: BP 118/58; PULSE 71; TEMP 98.3
--- NOTE | 2017-05-18 09:11 | PDOC ---
History of Present Illness - General Chief Complaint: Nausea/Vomiting Stated Complaint: NAUSEA/VOMITING Time Seen by Provider: 05/18/17 05:08 History Source: Patient Exam Limitations: No Limitations - History of Present Illness Initial Comments: 05/18/17 09:11 pt was signed out to me by DR Harris Patient is a 32F with history of depression, anxiety, polysubstance abuse here today complaining of nausea, vomiting, diarrhea. Vital signs stable and normal. DDx includes, but is not limited to: hyperemesis gravidarum, gastroenteritis, UTI. Will workup with cbc, cmp, lipase, beta quant, type and scnreen, ua, tvus. Transvaginal US Single live intrauterine with estimated gestational age of 14 weeks 2 days. Follow-up is needed to check anatomy. 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 to repeat Bhcg, and US Past History - Past Medical History Allergies/Adverse Reactions: Allergies Allergy/AdvReac Type Severity Reaction Status Date / Time No Known Allergies Allergy Verified 05/18/17 05:07 Home Medications: Ambulatory Orders Quetiapine Fumarate [Seroquel] 100 tab PO HS #30 tablet 02/08/17 Sertraline HCl [Zoloft -] 100 mg PO DAILY #30 tablet 02/08/17 Anemia: No Asthma: No Cancer: No Cardiac Disorders: No CVA: No COPD: No CHF: No DVT: No Dementia: No Diabetes: No Dialysis: No GI Disorders: No Disorders: No HTN: No Hypercholesterolemia: No Kidney Stones: No Liver Disease: No Psychiatric Problems: Yes (BIPOLAR. OCD. anxiety) Seizures: No Thyroid Disease: No Lung CA: No - Surgical History Abdominal Surgery: No Appendectomy: No Cardiac Surgery: No Cholecystectomy: No Lung Surgery: No Neurologic Surgery: No Orthopedic Surgery: No - Reproductive History Is Patient Now?: Yes (unknown gestation) (#): 5 Para: 4 PID: No Therapeutic (s) & number: No - Immunization History Immunization Up to Date: Yes - Suicide/Smoking/Psychosocial Hx Smoking History: Never smoked Have you smoked in the past 12 months: No Number of Cigarettes Smoked Daily: 10 Information on smoking cessation initiated: No 'Breaking Loose' booklet given: 01/19/17 Hx Alcohol Use: No Drug/Substance Use Hx: No Substance Use Type: Cocaine (Started using cocaine at age 17, consumes $40 worth daily. Last used on 01/12/17) Hx Substance Use Treatment: Yes (2 previous inpt rehab admission @ [facility]) *Physical Exam - Vital Signs Last Vital Signs Temp Pulse Resp BP Pulse Ox 98.3 F 71 18 118/58 98 05/18/17 08:44 05/18/17 08:44 05/18/17 08:44 05/18/17 08:44 05/18/17 08:44 ED Treatment Course - LABORATORY CBC & Chemistry Diagram: 05/18/17 05:21 05/18/17 05:21 - ADDITIONAL ORDERS Additional order review: Laboratory Results 05/18/17 05/18/17 05:21 05:21 Sodium 139 Potassium 3.9 Chloride 103 Carbon Dioxide 26 Anion Gap 10 BUN 6 L Creatinine 0.5 L Creat Clearance w eGFR > 60 Random Glucose 82 Calcium 8.2 L Total Bilirubin 0.4 D AST 19 ALT 47 Alkaline Phosphatase 95 Total Protein 6.7 Albumin 3.1 L Lipase 71 L Beta HCG, Quant 31925.3 Blood Type B POSITIVE Antibody Screen Negative 05/18/17 05:21 RBC 3.97 MCV 91.0 MCHC 35.7 RDW 12.2 MPV 8.2 Neutrophils % 61.2 D Lymphocytes % 28.2 D Monocytes % 7.9 D Eosinophils % 1.8 D Basophils % 0.9 - Medications Given in the ED: ED Medications Discontinued Medications Generic Name Dose Route Start Last Admin Trade Name Freq PRN Reason Stop Dose Admin Famotidine/Sodium Chloride 20 mg in 50 mls @ 100 mls/hr 05/18/17 05:19 06:14 Pepcid 20 Mg Premixed Ivpb - IVPB 05/18/17 05:48 100 mls/hr ONCE ONE Administration Sodium Chloride 1,000 mls @ 1,000 mls/hr 05/18/17 05:19 05/18/17 05:28 Normal Saline - IV 05/18/17 06:18 1,000 mls/hr ASDIR STA Administration Ondansetron HCl 4 mg 05/18/17 05:19 05/18/17 05:28 Zofran Injection IVPUSH 05/18/17 05:20 4 mg ONCE ONE Administration *DC/Admit/Observation/Transfer Diagnosis at time of Disposition: Nausea - Discharge Dispostion Disposition: HOME Condition at time of disposition: Stable Admit: No - Referrals Referrals: Pratik Guerrero [Primary Care Provider] - 1 week - Patient Instructions Printed Discharge Instructions: DI for Vomiting -- Adult Additional Instructions: You presented to the ED due to nausea and vomiting , your symptom has been improved. the echo came back with normal of 14 weeks and 2 days. Please follow up with your primary within one week Please follow up with your senior net c developer as out pt to repeat BHCG and US If your symptoms worsen please return to emergency room radha - Post Discharge Activity
== END 2017-05-18 09:43 | disposition home or self-care (01) ==
LOC: JER 04:59
PROC: 3E033GC Introduction of Other Therapeutic Substance into Peripheral Vein, Percutaneous Approach (ICD-10-PCS; principal; 2017-05-18)
PROC: 3E0337Z Introduction of Electrolytic and Water Balance Substance into Peripheral Vein, Percutaneous Approach (ICD-10-PCS; 2017-05-18)
DX: R11.0 Nausea (principal)
CPT/HCPCS: 36415; 76815-TC; 80053; 83690; 84702; 85025; 86850; 86900; 86901; 96361; 96365; 96375; 99283-25; J7030

== ENCOUNTER 2017-06-21 13:14 | Emergency (ER) | payer OTHER ==
[2017-06-21 13:22] VITALS: BP 115/69; PULSE 75; TEMP 98.2; BMI 30.9
[2017-06-21] MEDS ORDERED: BACITRACIN 15 GM TUBE TOPICAL OINTMENT TP ONE (13:37)
--- NOTE | 2017-06-21 13:37 | PDOC ---
History of Present Illness - General Chief Complaint: Wound Stated Complaint: SWOLLEN LT FOOT Time Seen by Provider: 06/21/17 13:31 History Source: Patient Exam Limitations: No Limitations - History of Present Illness Initial Comments: 06/21/17 13:37 Patient states brought a new pair of Tennis shoes, or them 2 days ago and they were too tight, causing her multiple blisters and excoriations to the dorsum of her left foot and heel. States washed in the shower but hasn't used any other medications or treatments for relief, is 19 weeks 06/21/17 13:52 06/21/17 13:54 Timing/Duration: 24 hours Severity: mild Associated Symptoms: reports: denies symptoms Past History - Travel Traveled outside of the country in the last 30 days: No Close contact w/someone who was outside of country & ill: No - Past Medical History Allergies/Adverse Reactions: Allergies Allergy/AdvReac Type Severity Reaction Status Date / Time No Known Allergies Allergy Verified 06/21/17 13:19 Home Medications: Ambulatory Orders Quetiapine Fumarate [Seroquel] 100 tab PO HS #30 tablet 02/08/17 Sertraline HCl [Zoloft -] 100 mg PO DAILY #30 tablet 02/08/17 Anemia: No Asthma: No Cancer: No Cardiac Disorders: No CVA: No COPD: No CHF: No DVT: No Dementia: No Diabetes: No Dialysis: No GI Disorders: No Disorders: No HTN: No Hypercholesterolemia: No Kidney Stones: No Liver Disease: No Psychiatric Problems: Yes (BIPOLAR. OCD. anxiety) Seizures: No Thyroid Disease: No Lung CA: No - Surgical History Abdominal Surgery: No Appendectomy: No Cardiac Surgery: No Cholecystectomy: No Lung Surgery: No Neurologic Surgery: No Orthopedic Surgery: No - Reproductive History (#): 5 Para: 4 PID: No Therapeutic (s) & number: No - Immunization History Immunization Up to Date: Yes - Suicide/Smoking/Psychosocial Hx Smoking History: Never smoked Have you smoked in the past 12 months: No Number of Cigarettes Smoked Daily: 10 Information on smoking cessation initiated: No 'Breaking Loose' booklet given: 01/19/17 Hx Alcohol Use: No Drug/Substance Use Hx: No Substance Use Type: Cocaine Hx Substance Use Treatment: Yes (2 previous in rehab admission @ [facility]) Review of Systems - Review of Systems Able to Perform ROS?: Yes Is the patient limited Belarusian proficient: Yes Constitutional: Yes: See HPI. No: Symptoms Reported, Fever HEENTM: Yes: Symptoms Reported, See HPI Respiratory: No: Symptoms reported Musculoskeletal: Yes: Symptoms Reported Integumentary: Yes: Symptoms Reported, See HPI, Bruising, Lesions All Other Systems: Reviewed and Negative *Physical Exam - Vital Signs Last Vital Signs Temp Pulse Resp BP Pulse Ox 98.2 F 75 16 115/69 100 06/21/17 13:19 06/21/17 13:19 06/21/17 13:19 06/21/17 13:19 06/21/17 13:19 - Physical Exam General Appearance: Yes: Nourished, Appropriately Dressed, Apparent Distress HEENT: positive: DESMOND, Normal ENT Inspection, TMs Normal, Pharynx Normal Neck: positive: Supple. 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 *DC/Admit/Observation/Transfer Diagnosis at time of Disposition: Abrasions of multiple sites - Discharge Dispostion Disposition: HOME Condition at time of disposition: Stable Decision to Admit order: No - Referrals - Patient Instructions Printed Discharge Instructions: DI for Abrasion Additional Instructions: Rest, keep area elevated. Avoid strenuous activity or exercise until wound is healed Use hot soaks to area to bring more blood to the surface and encourage drainage May change dressings as needed to keep clean - Allow water from shower to wash area thoroughly for 2-3 minutes, and pat dry upon exit of shower and replace dressing. Change his dressing daily until the wound is completely healed. May use Tylenol or Motrin for mild pain relief Followup with private physician in 2-3 days for wound check Return to emergency Department for worsening swelling, pain, redness, fevers as needed - Post Discharge Activity Forms/Work/School Notes: Back to Work
[2017-06-21] MEDS ORDERED: BACITRACIN 15 GM TUBE TOPICAL OINTMENT ONE (13:42)
== END 2017-06-21 13:56 | disposition home or self-care (01) ==
LOC: JERFT 13:14
DX: O99.89 Other specified diseases and conditions complicating pregnancy, childbirth and the puerperium (principal); S90.822A Blister (nonthermal), left foot, initial encounter; X58.XXXA Exposure to other specified factors, initial encounter; Y93.89 Activity, other specified; Y92.89 Other specified places as the place of occurrence of the external cause; Y99.8 Other external cause status; Z59.0 Homelessness; Z3A.19 19 weeks gestation of pregnancy
CPT/HCPCS: 99281-25

== ENCOUNTER 2018-07-31 11:41 | Emergency (ER) | payer OTHER | END 2018-07-31 13:09 | disposition home or self-care (01) | LOC: JERFT 11:41 ==